=== PATIENT | female | born 1955 | race Caucasian/White ===

== ENCOUNTER 2023-06-15 10:59 | Outpatient (CLI) | payer MEDICARE, SELFPAY ==
--- NOTE | ~2023-06-15 | CT_ITS ---
CT Scan of the Chest without Contrast: Clinical Indication: Lung cancer screening, nicotine dependence Technique: Contiguous sections were acquired throughout the chest without intravenous contrast. Dose reduction technique was used on this scan by utilizing automated exposure control and iterative recon struction technique. The dose-length product (DLP) was 72.15 mGy-cm. Findings: There is no evidence of any significant mediastinal, hilar or axillary lymphadenopathy. The mediastin al soft tissues appear normal. There is no evidence of pleural or pericardial effusion. There is biapical scarring and bilateral upper lobe moderate emphysematous change. There are minimal groundglass opacities in the lingula and right middle lobe, most likely representing acute and/or chr onic small areas infection. Images through the upper abdomen reveal no abnormalities. Impression: Lung RADS 2: Benign appearance. 12 month follow-up screening CT advised. Moderate emphysema and suspected small airways infection, as above. Reviewed, dictated and finalized at [facility]. Impression: Lung RADS 2: Benign appearance. 12 month follow-up screening CT advised. Moderate emphysema and suspected small airways infection, as above.
== END 2023-06-15 11:00 | disposition home or self-care (01) ==
PROVIDERS: PCP Internal Medicine; Visit Provider Internal Medicine
DX: Z12.2 Encounter for screening for malignant neoplasm of respiratory organs (principal); J43.9 Emphysema, unspecified; R91.8 Other nonspecific abnormal finding of lung field; Z87.891 Personal history of nicotine dependence
CPT/HCPCS: 71271

== ENCOUNTER 2023-10-03 12:15 | Emergency (ER) | payer MEDICARE, SELFPAY ==
--- NOTE | ~2023-10-03 | CT_ITS ---
EXAMINATION: CT thoracic lumbar wo con DATE: 10/03/2023 13:00 INDICATION: Back pain. TECHNIQUE: Computed tomography (CT) of the thoracic and lumbar spine was performed without intravenou s contrast. Automated exposure control and iterative reconstruction technique were employed. The dose -length product was 550.74 mGy-cm. COMPARISON: Chest CT 06/15/2023 FINDINGS: CT THORACIC SPINE: There is mild emphysema. There is mild scarring at the lung apices. There is 7 deg florina levocurvature of upper thoracic spine and 8 degrees dextrocurvature of lower thoracic spine. The re is a burst fracture of superior endplate of T12 with 1/5 loss of height and retropulsion of bone 3 mm into central spinal canal. There is mildly decreased disc height at T4-T5 and T8-T9. There is mul tilevel facet joint osteoarthritis, mild at most levels. At T1-T2, there is mild bilateral neural for aminal stenosis. At T11-T12, there is mild central canal stenosis. CT LUMBAR SPINE: Bone alignment is normal. There is a chronic compression fracture of L5 with 2/5 los s of height. There is mildly decreased disc height at L4-L5. 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 The following disc levels are specifically discussed: L1-L2: The disc does not extend beyond the endplate margin. There is mild bilateral facet joint osteo arthritis. There is no neural foraminal stenosis. There is no central canal stenosis. L2-L3: The disc does not extend beyond the endplate margin. There is mild bilateral facet joint osteo arthritis. There is no neural foraminal stenosis. There is no central canal stenosis. L3-L4: The disc does not extend beyond the endplate margin. There is mild bilateral facet joint osteo arthritis. There is no neural foraminal stenosis. There is no central canal stenosis. L4-L5: The disc is bulging. There is severe bilateral facet joint osteoarthritis. There is mild bilat eral neural foraminal stenosis. There is mild central canal stenosis. L5-S1: The disc does not extend beyond the endplate margin. There is moderate right facet joint osteo arthritis. There is ankylosis of left facet joint. Left S1 facet is not united to the body of the sac rum. There is no neural foraminal stenosis. There is no central canal stenosis. IMPRESSION: 1. Acute/subacute T12 burst fracture, new from 06/13/2023. 2. Mild thoracic and lumbar spondylosis. Reviewed, dictated and finalized at location [facility].
[2023-10-03 12:13] VITALS: BP 119/73; PULSE 70; RESP 16; TEMP 36.6; O2SAT 100
--- NOTE | 2023-10-03 12:40 | ED.BACK ---
HPI - Back Pain/Injury General Chief Complaint: Back Pain/Injury Stated Complaint: back pain History of Present Illness HPI Narrative: 68-year-old female presenting to the emergency department for evaluation for lower back pain. Patient states she was trying to lift something heavy when she felt the pop her back. Patient states she did have some associated nausea and lightheadedness and response to the pain. Patient denies any associated numbness or weakness but is having intense lower back pain with spasm. Patient did arrive by EMS and was treated with 15 mg of IV Toradol. Patient states this brought her pain down from a 10 to a 9. Patient still is visibly uncomfortable at time of evaluation. Related Data Allergies Allergy/AdvReac Type Severity Reaction Status Date / Time No Known Allergies Allergy Unverified 10/03/23 12:50 Review of Systems Review of Systems: All systems reviewed & are unremarkable except as noted in HPI and below PMFSH Past Medical History Medical History (Updated 10/03/23 @ 15:05 by Lev Masterson MD) History of breast cancer Vitamin D deficiency Surgical History Surgical History (Updated 08/15/23 @ 10:06 by Nelly Freire MA) H/O: hysterectomy History of total mastectomy of right breast History of tubal ligation Family History Family History (Updated 08/15/23 @ 10:06 by Nelly Freire MA) Sibling Deep vein thrombosis Social History Social History (Updated 08/15/23 @ 10:07 by Nelly Freire MA) Smoking status: Current every day smoker Tobacco type: cigarettes Alcohol intake: never Substance use: current Other substance usage details: gummies Do You Feel Safe in your Home?: Yes Lack of Transportation: No Current Housing: Decline to Answer Concerned About Future Housing: Decline to Answer Difficulty Paying Gas/Electric Bills: Decline to Answer Difficulty Paying for Meds: Decline to Answer Currently Unemployed: Decline to Answer Education: Decline to Answer Difficulty w/ Childcare or Family Care: Decline to Answer Living arrangements: with family Occupation/Education: retired Gender identity (if verbalized by the patient): Female Sexual Orientation (if Verbalized by the Patient): Straight or Heterosexual Exam Narrative: APPEARANCE: Well appearing, no pain, no distress, well-nourished. HEAD: normocephalic, atraumatic. EYES: PERRLA/EOMI, conjunctivae clear. NOSE: Normal no drainage EARS:TMS clear with good light reflex. THROAT: Pharynx clear, no exudate. NECK: Supple. No adenopathy, no masses. RESPIRATORY: Airway patent, respirations nonlabored. Clear to auscultation bilaterally, no rales, rhonchi, wheezing. CARDIOVASCULAR: Regular rate and rhythm without murmurs rubs or gallops. ABDOMINAL: Soft, nontender, nondistended, normal bowel sounds MUSCULOSKELETAL: Midline lower back pain NEURO: Alert. Cranial nerves II through XII intact. Grossly intact SKIN: Warm, dry. Normal Color Course Vital Signs Vital signs: Vital Signs Temperature 97.8 F 10/03/23 12:13 Pulse Rate 70 10/03/23 12:13 Respiratory Rate 16 10/03/23 12:13 Blood Pressure 119/73 10/03/23 12:13 Pulse Oximetry 100 10/03/23 12:13 Oxygen Delivery Room Air 10/03/23 12:13 Temperature 97.8 F 10/03/23 12:13 Pulse Rate 62 10/03/23 15:25 Respiratory Rate 15 10/03/23 15:25 Blood Pressure 106/63 10/03/23 15:25 Pulse Oximetry 96 10/03/23 15:25 Oxygen Delivery Room Air 10/03/23 12:13 MDM - Back Pain/Injury MDM Narrative Medical decision making narrative: 68-year-old female presenting to the emergency department for evaluation for back pain. CT was concerning for T12 burst/compression fracture. Did have difficulty controlling the patient's pain but ultimately patient states the spasms have improved and she is resting comfortably. I discussed the case with Neurosurgery and they did not feel the patient needed to be admitted for treatm
[2023-10-03] MEDS: HYDROmorphone HCL INJ (*CRX) 1 MG/ML SYR 0.5 MG IV PUSH ×2 (12:46→13:25)
[2023-10-03] MEDS: CYCLOBENZAPRINE HCL 10 MG TABLET PO (12:47)
--- NOTE | 2023-10-03 12:51 | PC.NURSE ---
pt to CT at this time
--- NOTE | 2023-10-03 13:00 | PC.NURSE ---
pt back from CT at this time
[2023-10-03 13:59] VITALS: BP 134/92; PULSE 64; RESP 15; O2SAT 100
[2023-10-03] MEDS: ONDANSETRON INJ 4 MG/2 ML VIAL IV PUSH (14:12)
[2023-10-03 15:25] VITALS: BP 106/63; PULSE 62; RESP 15; O2SAT 96
== END 2023-10-03 15:27 | disposition home or self-care (01) ==
PROVIDERS: Emergency Provider Emergency Medicine; PCP Internal Medicine
DX: S22.081A Stable burst fracture of T11-T12 vertebra, initial encounter for closed fracture (principal); E55.9 Vitamin D deficiency, unspecified; F17.210 Nicotine dependence, cigarettes, uncomplicated; Z85.3 Personal history of malignant neoplasm of breast; Z90.710 Acquired absence of both cervix and uterus; Z90.11 Acquired absence of right breast and nipple; M47.816 Spondylosis without myelopathy or radiculopathy, lumbar region; M47.814 Spondylosis without myelopathy or radiculopathy, thoracic region; X50.0XXA Overexertion from strenuous movement or load, initial encounter
CPT/HCPCS: 72128; 72131; 96374; 96375; 96376; 99284; A9270; J1170; J2405

== ENCOUNTER 2023-12-04 07:41 | Outpatient (CLI) | payer MEDICARE, SELFPAY ==
--- NOTE | ~2023-12-04 | MM_ITS ---
EXAMINATION: MM screening kevin LT w lenin HISTORY: Screening TECHNIQUE: Craniocaudal and mediolateral oblique 3-D tomosynthesis images were obtained and synthetic 2-D images were generated. CAD analysis was submitted and interpreted. COMPARISON: 11/02/2009 BREAST PARENCHYMAL COMPOSITION: Not dense: There are scattered areas of fibroglandular density. FINDINGS: There is no evidence of suspicious mass, calcification, or architectural distortion to sugg est malignancy in the left breast. There has been no suspicious interval change. IMPRESSION: 1. No mammographic evidence of malignancy. 2. Recommend routine screening mammography in one year. BI-RADS Category 1: Negative Reviewed, dictated and finalized at location [facility].
--- NOTE | ~2023-12-04 | DEXA_ITS ---
Bone Density Report Name: TATIANA AWAD Age: 68 Sex: Female Ethnicity: White Date of : 1955 Indication: postmenopausal; screening for osteoporosis; height loss; prior fracture; cancer; hysterectomy; Referring Provider: JASMYN BEDOLLA Study: Bone densitometry was performed. Exam Date: December 04, 2023 Accession number: [id number] Bone Density: Region BMD T-score Z-score Classification AP Spine(L1-L4) 0.766 -2.6 -0.7 Osteoporosis Femoral Neck (Left) 0.600 -2.2 -0.7 Osteopenia Total Hip (Left) 0.751 -1.6 -0.3 Osteopenia Femoral Neck (Right) 0.618 -2.1 -0.5 Osteopenia Total Hip (Right) 0.791 -1.2 0.0 Osteopenia Total Hip Mean 0.771 -1.4 -0.2 Osteopenia World Health Organization criteria for BMD impression classify patients as: Normal (T-score at or above -1.0), Osteopenia (T-score between -1.0 and -2.5), or Osteoporosis (T-score at or below -2.5). 10-year Fracture Risk: FRAX not reported because: Some T-score for Spine Total or Hip Total or Femoral Neck at or below -2.5 Prior hip or vertebral fracture Clinical Information Provided by Patient: Have had a previous hip or vertebral fracture Has had a low trauma fracture Smokes Has used the following medications: Vitamin D Has the following medical conditions: Cancer, Hysterectomy, breast cancer. addie abdijulia Patient maximum height was 70 Menopause Age: 52 No regular weight bearing exercise Onset of menses at age 17 Number of children 3 Impression: The patient has established osteoporosis, based on the Total Spine T-score and the existence of a prior fracture. The patient has risk factors, including: smoking, previous fracture. Discussion: HIGH RISK OF FRACTURE. BONE DENSITY IS UNDESIRABLY LOW AT ONE OR MORE SKELETAL SITES, CONSISTENT WITH POSTMENOPAUSAL OSTEOPOROSIS. This patient's lowest T-score, in a patient who has previously fractured, meets the World Health Organization's (WHO) criteria for severe osteoporosis. In untreated patients, the risk of osteoporotic fracture increases approximately two-fold for each 1.0 SD decrease in T-score. Low bone density is not the only risk factor for fracture; also consider factors such as patient's age, frailty or poor health, risk of falling, risk of injury, previous osteoporotic fracture, family history of osteoporosis, cigarette smoking, low body weight, etc. Not everyone with low bone mineral density has osteoporosis; osteomalacia and other metabolic bone disorders should also be considered. Patients who have osteoporosis should be evaluated for specific diseases and conditions (secondary causes) that may cause or contribute to bone loss. The [place] [employer] (AACE) and National Osteoporosis Foundation (NOF) recommend pharmacologic intervention for all postm
== END 2023-12-04 07:42 | disposition home or self-care (01) ==
LOC: ANHIMG 07:42
PROVIDERS: PCP Internal Medicine; Visit Provider Internal Medicine
DX: Z12.31 Encounter for screening mammogram for malignant neoplasm of breast (principal); Z78.0 Asymptomatic menopausal state; M81.0 Age-related osteoporosis without current pathological fracture; M85.852 Other specified disorders of bone density and structure, left thigh; M85.851 Other specified disorders of bone density and structure, right thigh
CPT/HCPCS: 77063; 77067; 77080

== ENCOUNTER 2023-12-06 09:26 | Outpatient (CLI) | payer MEDICARE, SELFPAY ==
--- NOTE | ~2023-12-06 | CT_ITS ---
CT of the Abdomen and Pelvis: Indication: Hematuria Technique: 2.5 mm axial scans were obtained through the abdomen and pelvis prior to and following in travenous administration of 130 cc of Omnipaque 350. Dose reduction technique was used on this scan b y utilizing automated exposure control and iterative reconstruction technique. The dose-length produc t (DLP) was 488.94 mGy-cm. Findings: Scans through the lung bases are unremarkable. The liver, spleen, pancreas, gallbladder, adrenals and kidneys are within normal limits. There are at herosclerotic calcifications of the aorta. No lymphadenopathy. No bowel obstruction or bowel wall thickening. There is no evidence to suggest acute appendicitis. Images through the pelvis were performed. Urinary bladder unremarkable. No pelvic mass seen. No ascit es. T12 compression deformity noted. Impression: No etiology for hematuria identified. Reviewed, dictated and finalized at [facility]. Impression: No etiology for hematuria identified.
[2023-12-06 09:51] LABS: Estimated Glomerular Filt Rate > 60
== END 2023-12-06 09:27 | disposition home or self-care (01) ==
PROVIDERS: PCP Internal Medicine; Visit Provider Urology
DX: R31.0 Gross hematuria (principal)
CPT/HCPCS: 74178; Q9967